=== PATIENT | male | born 1955 | race Caucasian/White ===

== ENCOUNTER → 2024-12-20 | Day surgery (SDC) | payer MEDICARE ==
[2024-12-18 12:26] LABS: BASOPHILS % 0.5 % (0.0-1.0); EOSINOPHILS % 1.6 % (0.0-6.0); LYMPHOCYTES % 17.7 % (18.0-39.1); MONOCYTES % 11.2 % (4.4-11.3); NEUTROPHILS % 68.8 % (38.7-80.0); RED CELL DISTRIBUTION WIDTH 12.7 % (11.7-14.4)
[~2024-12-20] MED LIST: ACETAMINOPHEN 1000 MG/100 ML 100 ML IV ONE; DEXAMETHASONE SOD PHOS INJ 4 MG/ML SDV ONE; ELIQUIS5 MG PO; FENTANYL CITRATE/PF 100MCG/2 ML INJ ONE; LIDOCAINE HCL 2% LOCAL INJ 5 ML SDV VIAL INJ ONE; LIPITOR20 MG PO; LOSARTAN POTASS25 MG PO; NEURONTIN300 MG PO; ONDANSETRON HCL INJ 2MG/ML 2ML 2 MG/ML VIAL ONE; PHENAZOPYRIDINE HCL 100 MG TAB ONE; PLAVIX75 MG PO; PROPOFOL IV EMULSION 10 MG/ML 20 ML VIAL ONE; RAPAFLO8 MG PO; SOTALOL80 MG PO; ZETIA10 MG PO
[2024-12-20] MEDS: CEFAZOLIN SODIUM 2 GM ONE (09:30)
[2024-12-20] MEDS: SODIUM CHLORIDE 0.9% 1000ML 1,000 ML ONE (09:31)
[2024-12-20 10:33] LABS: EST GLOMERULAR FILTRATION RATE 86.0 ML/MIN (>=60)
[2024-12-20 11:30] VITALS: TEMP 98
[2024-12-20] MEDS: PHENAZOPYRIDINE HCL 100 MG TAB PO ONE ×2 (12:05)
[2024-12-20 12:50] VITALS: BP 148/82; PULSE 54; RESP 18; O2SAT 98
== END | disposition home or self-care (01) ==
LOC: OR 08:59
PROVIDERS: ATTEND Urology
DX: N43.3 Hydrocele, unspecified (principal); N43.2 Other hydrocele; N40.1 Benign prostatic hyperplasia with lower urinary tract symptoms; N13.8 Other obstructive and reflux uropathy; N32.89 Other specified disorders of bladder; I48.91 Unspecified atrial fibrillation; E66.01 Morbid (severe) obesity due to excess calories; K57.90 Diverticulosis of intestine, part unspecified, without perforation or abscess without bleeding; Z01.810 Encounter for preprocedural cardiovascular examination; Z01.812 Encounter for preprocedural laboratory examination; Z01.818 Encounter for other preprocedural examination; Z79.02 Long term (current) use of antithrombotics/antiplatelets; Z79.899 Other long term (current) drug therapy; Z87.891 Personal history of nicotine dependence; Z85.46 Personal history of malignant neoplasm of prostate; Z92.3 Personal history of irradiation
CPT/HCPCS: 36415 ×2; 52000; 55040; 71046; 80048; 85025; 88304; 88311; 93005; J0131; J1100; J2003; J2405; J2704; J3010; J7030